=== PATIENT | male | born 1960 | race Two or more races ===

== ENCOUNTER 2021-10-04 13:55 | Emergency (ER) | payer MEDICAID, OTHER ==
[~2021-10-04] VITALS: Ht 182.9 cm; Wt 63.5 kg
[2021-10-04 15:39] LABS: Basophils # (auto) 0.1 10 ^3/uL (0-0.2); Basophils % (auto) 1.2 % (0.0-2.0); Eosinophils # (auto) 0.1 10 ^3/uL (0-0.8); Eosinophils % (auto) 1.6 % (0.0-7.0); Hematocrit 49.6 % (41.0-53.0); Hemoglobin 17.2 g/dL (13.5-17.5); Lymphocytes # (auto) 2.8 10 ^3/uL (0.4-5.4); Lymphocytes % (auto) 43.3 % (10.0-50.0); Mean Corpuscular Hemoglobin 32.2 pg (28.0-32.0); Mean Corpuscular Hgb Conc. 34.7 g/dL (32.0-36.0); Mean Corpuscular Volume 92.9 fL (80.0-100.0); Monocytes # (auto) 0.4 10 ^3/uL (0-1.3); Monocytes % (auto) 6.6 % (0.0-12.0); Neutrophils % (auto) 47.3 % (37.0-80.0); Nucleated Red Blood Cells % 0.1 %; Red Blood Cells 5.33 10^6/uL (4.5-5.90); Red Cell Distribution Width 12.1 % (11.8-14.3); White Blood Cell 6.4 10^3/uL (4.4-10.8)
[2021-10-04 16:09] LABS: Albumin 3.8 g/dL (3.4-5.0); BUN/Creatinine Ratio 13.1; Calcium 9.4 mg/dL (8.5-10.1); Potassium 4.4 mmol/L (3.5-5.1)
[2021-10-04 16:12] LABS: Total Protein 7.1 g/dL (6.4-8.2)
[2021-10-04 16:13] LABS: Urine Bacteria NONE SEEN /hpf (None Seen); Urine Blood Negative /uL (Negative); Urine Specific Gravity 1.037 (1.001-1.035); Urine WBC 1 /hpf (0 - 3)
[2021-10-04 17:00] VITALS: BP 111/72
== END 2021-10-04 18:31 | disposition home or self-care (01) ==
LOC: ER 13:55
DX: K59.00 Constipation, unspecified (principal); F17.210 Nicotine dependence, cigarettes, uncomplicated; F15.10 Other stimulant abuse, uncomplicated
CPT/HCPCS: 36415; 74176; 80053; 81001; 82150; 83690; 85025

== ENCOUNTER 2024-08-05 13:06 | Inpatient (IN) | payer MEDICAID ==
[~2024-08-05] VITALS: Ht 182.9 cm; Wt 76.7 kg
[2024-08-05 13:55] VITALS: PULSE 104; RESP 24; O2SAT 97
[2024-08-05 13:58] LABS: Hematocrit 36.8 % (41.0-53.0); Hemoglobin 12.7 g/dL (13.5-17.5); Mean Corpuscular Hemoglobin 31.8 pg (28.0-32.0); Mean Corpuscular Hgb Conc. 34.6 g/dL (32.0-36.0); Mean Corpuscular Volume 91.8 fL (80.0-100.0); Platelet Count (auto) 343 10^3/uL (140-450); Red Cell Distribution Width 13.6 % (11.8-14.3); White Blood Cell 15.5 10^3/uL (4.4-10.8)
[2024-08-05 14:02] LABS: Alanine Aminotransferase 17 U/L (7-40); Albumin 3.7 g/dL (3.2-4.8); Alkaline Phosphatase 179 U/L (46-116); Anion Gap 10 (5-15); Aspartate Aminotransferase 22 U/L (13-40); BUN/Creatinine Ratio 13.8 (10.0-20.0); Blood Alcohol < 3.0 mg/dL (<10); Blood Urea Nitrogen 42 mg/dL (9-23); Calcium 9.4 mg/dL (8.7-10.4); Carbon Dioxide 19 mmol/L (20-30); Chloride 103 mmol/L (98-107); Glucose 220 mg/dL (74-106); Magnesium 1.6 mg/dL (1.6-2.6); Potassium 4.3 mmol/L (3.5-5.1); Sodium 132 mmol/L (136-145)
[2024-08-05 14:03] LABS: Creatine Kinase IFCC 36 U/L (46-171); Total Protein 6.3 g/dL (5.7-8.2)
[2024-08-05 14:15] LABS: Basophils % (manual) 0 (0.0-2.0); Blast Cells 0; Eosinophils % (manual) 0 (0-7); Lactic Acid w/Reflex 2.6 mmol/L (0.4-2.0); Metamyelocytes % 0; Myelocytes % 0; Promyelocytes % 0; Reactive Lymphocytes 0
[2024-08-05 14:26] LABS: Band Neutrophils % (manual) 13; Lymphocytes % (manual) 4 (10.0-50.0); Monocytes % (manual) 1 (0-12)
[2024-08-05 14:27] LABS: Platelet Estimate Adequate
[2024-08-05 15:08] LABS: Lipase 21 U/L (12-53)
[2024-08-05] MEDS: LIDOCAINE 2% JELLY 11ml (GLYDO) UR ONE (15:45)
[2024-08-05] MEDS ORDERED: VANCOMYCIN PER PHARMACY 0 MG IV SCH ×2 (15:45→18:00)
[2024-08-05] MEDS ORDERED: MORPHINE SULFATE INJ 2 MG/ml SYRG IV PRN (16:00)
[2024-08-05] MEDS ORDERED: ONDANSETRON HCL 4 MG/2 ML VIAL IV PRN (16:00)
[2024-08-05] MEDS ORDERED: NITROGLYCERIN 0.4 MG SL TAB SL PRN (16:00)
[2024-08-05] MEDS ORDERED: DOCUSATE SOD 100 MG CAP PO PRN (16:00)
[2024-08-05] MEDS ORDERED: DEXTROSE (50%) 50ML SYRG IV PRN (16:00)
[2024-08-05] MEDS ORDERED: ACETAMINOPHEN 500 MG TAB PO PRN (16:00)
[2024-08-05] MEDS: PIPERACILLIN-TAZOB 3.375GM 100 ML IV ONE (17:01)
[2024-08-05] MEDS: ACCU-CHEK COMFORT CURVE STRIP VI SCH (17:04)
[2024-08-05] MEDS: InsuLIN REG 1unit/0.01ml Soln (100units/ml) SC SCH (17:10)
[2024-08-05] MEDS: VANCOMYCIN 1GM/200ML 200 ML IV ONE (17:47)
[2024-08-05] MEDS: SODIUM CHLORIDE 0.9% 1,000 ML IV ONE ×2 (17:47→18:00)
[2024-08-05 18:09] LABS: Urine Bacteria None Seen /hpf (None Seen)
[2024-08-05 18:28] LABS: Amphetamine Screen, Urine Pos (NEGATIVE); Barbiturate Scree,Urine Neg (NEGATIVE); Benzodiazephine Screen, Urine Neg (NEGATIVE); Cannabinoid Screen, Urine Neg (NEGATIVE); Cocaine Screen, Urine Neg (NEGATIVE); Opiate Scree,Urine Neg (NEGATIVE); Phencyclidine Screen, Urine Neg (NEGATIVE)
[2024-08-05 18:33] LABS: Urine Blood 3+ /uL (Negative); Urine Clarity Ex.Turbid (Clear); Urine Color Dark-Brown (Yellow); Urine Protein, UAD 2+ (Negative); Urine Specific Gravity 1.015 (1.001-1.035); Urine Urobilinogen Normal (Negative); Urine WBC 4531 /hpf (0 - 3); Urine WBC Clumps PRESENT /hpf (None Seen)
[2024-08-05] MEDS: SODIUM CHLORIDE 0.9% 1,000 ML IV SCH (19:00)
[2024-08-05 19:54] LABS: INR 1.18 (0.9-1.15); Partial Thromboplastin Time 32.7 SEC (24.5-34.5); Prothrombin Time 12.4 sec (9.3-11.8)
[2024-08-05 21:03] VITALS: PULSE 93; RESP 16; O2SAT 98
[2024-08-05] MEDS ORDERED: PIPERACILLIN-TAZOB 3.375GM 100 ML IV SCH (22:00)
[2024-08-05] MEDS: PIPERACILLIN-TAZOB 3.375GM 100 ML IV SCH (23:10)
[2024-08-06] VITALS (14 sets, daily range): BP systolic 82–98; BP diastolic 51–65; PULSE 60–91; RESP 14–20; TEMP 97.4–98.4; O2SAT 85–99
[2024-08-06 04:35] LABS: Basophils # (auto) 0 10 ^3/uL (0-0.2); Basophils % (auto) 0.2 % (0.0-2.0); Eosinophils # (auto) 0 10 ^3/uL (0-0.8); Eosinophils % (auto) 0.3 % (0.0-7.0); Hematocrit 36.6 % (41.0-53.0); Hemoglobin 12.5 g/dL (13.5-17.5); Lymphocytes # (auto) 0.3 10 ^3/uL (0.4-5.4); Lymphocytes % (auto) 3.5 % (10.0-50.0); Mean Corpuscular Hemoglobin 32.1 pg (28.0-32.0); Mean Corpuscular Hgb Conc. 34.1 g/dL (32.0-36.0); Mean Corpuscular Volume 94.2 fL (80.0-100.0); Monocytes # (auto) 0.2 10 ^3/uL (0-1.3); Monocytes % (auto) 2.5 % (0.0-12.0); Neutrophils # (auto) 7.9 10 ^3/uL (1.6-8.6); Neutrophils % (auto) 93.5 % (37.0-80.0); Platelet Count (auto) 248 10^3/uL (140-450); Red Blood Cells 3.89 10^6/uL (4.5-5.90); White Blood Cell 8.4 10^3/uL (4.4-10.8)
[2024-08-06 04:53] LABS: Anion Gap 13 (5-15); Carbon Dioxide 14 mmol/L (20-30); Chloride 110 mmol/L (98-107); Sodium 137 mmol/L (136-145)
[2024-08-06 04:54] LABS: Calcium 8.2 mg/dL (8.7-10.4)
[2024-08-06 04:59] LABS: BUN/Creatinine Ratio 18.2 (10.0-20.0); Glucose 126 mg/dL (74-106)
[2024-08-06 05:09] LABS: Blood Urea Nitrogen 32 mg/dL (9-23)
[2024-08-06] MEDS ORDERED: TIRZ2.5I SC (08:09)
[2024-08-06] MEDS ORDERED: INSLANTI SC (08:11)
[2024-08-06] MEDS ORDERED: METOCLOPRAMIDE HCL 5MG/ml INJ 2ml VIAL ONE (08:33)
[2024-08-06] MEDS ORDERED: PROPOFOL 10 MG/ML 20 ML IV ONE (08:33)
[2024-08-06] MEDS ORDERED: MIDAZOLAM HCL 2MG/2ML 2ml VIAL (1mg/ml) ONE (08:33)
[2024-08-06] MEDS ORDERED: ONDANSETRON HCL 4 MG/2 ML VIAL ONE (08:33)
[2024-08-06] MEDS ORDERED: fentaNYL CITRATE 100 MCG/2 ML VL ONE (08:33)
[2024-08-06] MEDS ORDERED: LIDOCAINE 2% (LOCAL ANESTH.) PF 5ml SDV ONE (08:34)
[2024-08-06] MEDS: ONDANSETRON HCL 4 MG/2 ML VIAL IV ONE (09:15)
[2024-08-06] MEDS ORDERED: HYDROmorphone HCL 2 MG/ML VL/or syr IV PRN (09:15)
[2024-08-06] MEDS ORDERED: PHENYLEPHRINE HCL 10 MG/ML VL ONE (09:17)
[2024-08-06] MEDS: LIDOCAINE W/ EPINEPHRINE 1% 20ML VIAL ONE (09:33)
[2024-08-06] MEDS ORDERED: VANCOMYCIN 1GM/200ML 200 ML IV SCH (09:45)
[2024-08-06] MEDS: VANCOMYCIN 1GM/200ML 200 ML IV SCH (12:02)
[2024-08-06] MEDS: HYDROcodone-ACET 5/325MG TAB PO PRN (15:55)
[2024-08-07] VITALS (8 sets, daily range): BP systolic 85–109; BP diastolic 51–69; PULSE 68–87; RESP 16–18; TEMP 97.5–99.4; O2SAT 91–98
[2024-08-07] MEDS: MORPHINE SULFATE INJ 2 MG/ml SYRG IV PRN (01:22)
[2024-08-07 06:30] LABS: Basophils # (auto) 0 10 ^3/uL (0-0.2); Basophils % (auto) 0.6 % (0.0-2.0); Eosinophils # (auto) 0.2 10 ^3/uL (0-0.8); Eosinophils % (auto) 3.5 % (0.0-7.0); Hematocrit 30.8 % (41.0-53.0); Hemoglobin 10.7 g/dL (13.5-17.5); Lymphocytes # (auto) 0.8 10 ^3/uL (0.4-5.4); Lymphocytes % (auto) 12.7 % (10.0-50.0); Mean Corpuscular Hemoglobin 31.9 pg (28.0-32.0); Mean Corpuscular Hgb Conc. 34.8 g/dL (32.0-36.0); Mean Corpuscular Volume 91.5 fL (80.0-100.0); Monocytes # (auto) 0.4 10 ^3/uL (0-1.3); Monocytes % (auto) 6.1 % (0.0-12.0); Neutrophils % (auto) 77.1 % (37.0-80.0); Nucleated Red Blood Cells % 0.1 %; Platelet Count (auto) 234 10^3/uL (140-450); Red Blood Cells 3.37 10^6/uL (4.5-5.90); Red Cell Distribution Width 13.5 % (11.8-14.3); White Blood Cell 6.5 10^3/uL (4.4-10.8)
[2024-08-08] VITALS (8 sets, daily range): BP systolic 101–110; BP diastolic 64–71; PULSE 62–84; RESP 14–20; TEMP 97.5–99.1; O2SAT 92–96
[2024-08-08] MEDS: VANCOMYCIN 1GM/200ML 200 ML IV SCH (12:32)
[2024-08-09] VITALS (7 sets, daily range): BP systolic 102–121; BP diastolic 56–75; PULSE 70–123; RESP 12–19; TEMP 97.6–98.6; O2SAT 94–98
[2024-08-09] MEDS: FLUCONAZOLE 200MG/100ML 100 ML IV SCH (11:39)
[2024-08-10 08:00] VITALS: PULSE 64; PULSE 80; RESP 19; O2SAT 95
[2024-08-10 09:00] VITALS: BP 122/65; PULSE 84; RESP 22; TEMP 97.9; O2SAT 97
[2024-08-10] MEDS ORDERED: HYDR-4902 PO (09:34)
[2024-08-10] MEDS ORDERED: FLUC200T50 PO (09:34)
[2024-08-10] MEDS ORDERED: CLIN1CAP70 PO (09:34)
[2024-08-10 12:41] VITALS: BP 118/70; PULSE 74; RESP 19; TEMP 97.8; O2SAT 95
[2024-08-10 13:00] VITALS: BP 109/65; PULSE 73; RESP 18; TEMP 98.5; O2SAT 98
== END 2024-08-10 13:50 | disposition home or self-care (01) | DRG 710 ==
LOC: ER 13:06 → EDUNIT# 13:06 → EDBD 13:06 → TELE 15:57 → TELE-E-ADS 15:57
PROVIDERS: ADMIT Nurse Practitioner Acute Care; ATTEND Family Medicine
PROC: 0K9P0ZZ Drainage of Left Hip Muscle, Open Approach (ICD-10-PCS; principal; 2024-08-06 09:06)
DX: A41.9 Sepsis, unspecified organism (principal); N17.0 Acute kidney failure with tubular necrosis; E44.0 Moderate protein-calorie malnutrition; E11.22 Type 2 diabetes mellitus with diabetic chronic kidney disease; I95.9 Hypotension, unspecified; L02.31 Cutaneous abscess of buttock; K61.1 Rectal abscess; N13.6 Pyonephrosis; E86.9 Volume depletion, unspecified; F15.10 Other stimulant abuse, uncomplicated; L03.317 Cellulitis of buttock; N18.9 Chronic kidney disease, unspecified; F17.210 Nicotine dependence, cigarettes, uncomplicated; Z90.49 Acquired absence of other specified parts of digestive tract; Z80.8 Family history of malignant neoplasm of other organs or systems; Z68.20 Body mass index [BMI] 20.0-20.9, adult; Z83.3 Family history of diabetes mellitus
CPT/HCPCS: 36415; 70450; 71045; 72192; 74176; 80048; 80053; 80202; 80307; 80320; 81001; 82550; 82565; 82962; 83036; 83605; 83690; 83735; 84153; 84484; 85007; 85025; 85027; 85610; 85730; 87040; 87070; 87075; 87077; 87086; 87088; 87205; 93005; 93926; 96365; 96367; G0378; J1450; J1815; J2001; J2250; J2405; J2543; J2704